=== PATIENT | male | born 1965 | race Caucasian/White ===

== ENCOUNTER 2025-01-20 07:42 | Outpatient (CLI) | payer BC, SELFPAY | END 2025-01-20 07:43 | disposition home or self-care (01) | PROVIDERS: Visit Provider Nurse Practitioner Family | DX: E03.9 Hypothyroidism, unspecified (principal); Z12.5 Encounter for screening for malignant neoplasm of prostate | CPT/HCPCS: 84443; G0103 ==

== ENCOUNTER 2025-07-15 08:22 | Outpatient (CLI) | payer BC, SELFPAY | END 2025-07-15 08:23 | disposition home or self-care (01) | LOC: FRMREF 08:23 | PROVIDERS: PCP Nurse Practitioner Family; Visit Provider Nurse Practitioner Family | DX: E03.9 Hypothyroidism, unspecified (principal) | CPT/HCPCS: 84439; 84443 ==